=== PATIENT | female | born 1945 ===

== ENCOUNTER 2016-11-11 01:00 | Emergency (ER) | payer MEDICARE, BC ==
[2016-11-11] MEDS ORDERED: NITROGLYCERIN 0.4 MG TAB SL PRN (01:16)
[2016-11-11] MEDS ORDERED: ASPIRIN 81 MG CHEWABLE CTB ONE (01:17)
[2016-11-11] MEDS ORDERED: NITROGLYCERIN 0.4 MG TAB SL ONE (01:17)
[2016-11-11 01:36] VITALS: RESP 30; TEMP 98
[2016-11-11 02:10] LABS: BASOPHILS % (AUTO) 1 % (0-3); EOSINOPHILS % (AUTO) 2 % (0-9); HEMATOCRIT 36 % (35-47); MEAN CORPUSCULAR HGB CONC 34.1 gm/dl (32.0-36.0); MEAN CORPUSCULAR VOLUME 85 fL (81-99); MONOCYTES % (AUTO) 7.3 % (0-12); NEUTROPHILS % (AUTO) 70.6 % (37-80)
[2016-11-11 02:30] LABS: ALBUMIN 3.3 gm/dl (3.4-5.0); CALCIUM 8.6 mg/dl (8.5-10.1); POTASSIUM 4.3 mMol/L (3.5-5.1)
[2016-11-11] MEDS ORDERED: SODIUM CHLORIDE 0.9% 1000ML 1,000 ML IV ONE ×2 (02:35→02:51)
[2016-11-11] MEDS ORDERED: SODIUM CHLORIDE 0.9% FLUSH 10 ML SOL IV PRN (02:50)
[2016-11-11 03:36] VITALS: BP 129/57; PULSE 79; O2SAT 91
[2016-11-11] MEDS ORDERED: ASPIRIN 325 MG TAB PO SCH (09:00)
== END 2016-11-11 04:30 | disposition home or self-care (01) | DRG 204 ==
LOC: ED 01:00
DX: R06.00 Dyspnea, unspecified (principal); Z94.0 Kidney transplant status; Z95.5 Presence of coronary angioplasty implant and graft
CPT/HCPCS: 36415; 71010; 71275; 80053; 83880; 84484; 85025; 93005; 99285; Q9967